=== PATIENT | male | born 1990 | race African-American/Black ===

== ENCOUNTER 2022-08-19 00:53 | Emergency (ER) | payer OTHER, SELFPAY ==
[2022-08-19 01:05] VITALS: BP 135/84; PULSE 73; RESP 18; TEMP 36.8; O2SAT 98; BMI 28.8
[2022-08-19 01:38] VITALS: BP 128/87; PULSE 68; RESP 14; O2SAT 96
--- NOTE | 2022-08-19 01:38 | XRR_ITS ---
PROCEDURE INFORMATION: Exam: XR Chest Exam date and time: 08/19/2022 1:54 AM Age: 31 years old Clinical indication: Other: Sickle cell disease; Additional info: Sickle cell dz TECHNIQUE: Imaging protocol: Radiologic exam of the chest. Views: 1 view. COMPARISON: No relevant prior studies available. FINDINGS: Lungs: Unremarkable. No consolidation. Pleural spaces: Unremarkable. No pleural effusion. No pneumothorax. Heart/Mediastinum: There is mild cardiomegaly. Bones/joints: Unremarkable. XR/XR chest 1V portable [id number] IMPRESSION: Mild cardiomegaly.
[2022-08-19] MEDS: HYDROmorphone 1 mg/mL INJ 1 mL IVP ×2 (01:57→03:23)
[2022-08-19] MEDS: sodium chloride 0.9% 1,000 ML 999 ML IV (01:57)
[2022-08-19] MEDS: ondansetron 2 mg/ML SDV 2 mL 4 MG IVP (01:57)
[2022-08-19] MEDS: diphenhydrAMINE 50 mg/mL SDV 1mL 25 MG IVP (01:58)
[2022-08-19 02:13] LABS: Reticulocyte % 1.7 % (0.5-2.0)
[2022-08-19 02:19] LABS: Basophils # 0.2 10^3/uL (0.0-0.1); Basophils % 1.3 %; Eosinophils # 0.5 10^3/uL (0.0-0.8); Eosinophils % 4.4 %; Hematocrit 36.2 % (42.0-52.0); Hemoglobin 11.4 g/dL (11.7-16.6); Lymphocytes # 3.7 10^3/uL (0.8-4.8); Lymphocytes % 29.9 %; Mean Corpuscular HGB Conc 31.5 g/dL (30.0-36.0); Mean Corpuscular Hemoglobin 18.4 pg (28.0-34.0); Mean Corpuscular Volume 58.4 fl (80-94); Monocytes # 1.2 10^3/uL (0.2-0.9); Monocytes % 9.9 %; Neutrophils # 6.73 10^3/uL (1.8-7.7); Neutrophils % 54.3 %; Nucleated Red Blood Cells # 0.3 /100WBC; Platelet Count 461 10^3/cmm (130-400); Red Cell Distribution Width 23.5 % (12.1-15.1); White Blood Count 12.4 10^3/uL (4.0-10.0)
[2022-08-19 02:29] LABS: Alanine Aminotransferase 16 U/L (0-41); Albumin Level 4.2 g/dL (3.5-5.2); Alkaline Phosphatase 81 U/L (40-130); Anion Gap 15.4 (5-19); Aspartate Amino Transferase 17 U/L (0-40); Blood Urea Nitrogen 8 mg/dL (6-20); C Reactive Protein 3.6 mg/L (0.0-4.9); Calcium 9.3 mg/dL (8.5-10.5); Carbon Dioxide 26 mmol/L (22-29); Chloride 105 mmol/L (98-107); Globulin 3.9 g/dL (1.3-4.6); Glomerular Filtration Rate 106.9 mL/min (90-130); Glucose 108 mg/dL (65-115); Osmolality Calculated 293 mOsm/kg (285-295); Potassium 4.4 mmol/L (3.5-5.1); Sodium 142 mmol/L (136-145); Total Bilirubin 1.2 mg/dL (0.15-1.2); Total Protein 8.1 g/dL (6.6-8.7)
[2022-08-19 02:31] LABS: Erythrocyte Sedimentation Rate 1 mm/hr (0-10)
[2022-08-19 02:45] LABS: Add RBC Morph Yes
[2022-08-19 02:46] LABS: RBC Morph Comp No
[2022-08-19 02:51] LABS: Anisocytosis 3+; Microcytosis 2+; Target Cells 3+
[2022-08-19 03:08] VITALS: BP 130/86; PULSE 63; RESP 15; O2SAT 90
[2022-08-19 03:23] VITALS: RESP 14
[2022-08-19 03:26] VITALS: BP 130/86; PULSE 70; RESP 14; O2SAT 96
--- NOTE | 2022-08-20 11:56 | W.ED.GENADLT ---
HPI - General Adult General: Chief complaint: General Medical Stated complaint: Sicle Cell Anemia Time Seen by Provider: 08/19/22 01:26 Source: patient History of Present Illness: 31 year old male with a history of sickle cell disease. He presents with right arm and right leg pain. He denies any chest symptoms such as chest pain or shortness of breath. There is no fever. He took roxycodone without improvement. Onset (ago): hour(s) Location: upper extremity and lower extremity Radiation: non-radiation Severity: moderate Quality: aching Pain Consistency: constant Relieving factors: none Exacerbating factors: none Associated symptoms: Deny chest pain, cough, diaphoresis, decreased appetite, dyspnea, fevers/chills, headache(s), nausea, rash, short of breath or vomiting Review of Systems Const: Denies: fever(s) or diaphoresis Eyes: Denies: change in vision Card: Denies: chest pain Resp: Denies: dyspnea GI: Denies: abdominal pain, nausea or vomiting : Denies: flank pain Musc: Denies: neck pain or back pain Skin/Breast: Denies: rash Neuro: Denies: headache(s), numbness in extremities or weakness in extremities Physical Exam Const: COMMON NORMALS: no acute distress HENMT: COMMON NORMALS: normocephalic, atraumatic and Normal external nose present HEAD & SCALP: normocephalic and atraumatic FACE & SINUS: normal facial exam NOSE: Normal external nose present and Normal nares present Eye: COMMON NORMALS: Equal, round and reactive pupils present and EOMs intact bilaterally PUPIL: Yes Equal, round and reactive pupils present Chest: COMMONS NORMALS: normal inspection of the chest Resp: COMMON NORMALS: normal respiratory effort, No retractions, No use of accessory muscles and clear to auscultation bilaterally AUSCULTATION: clear to auscultation bilaterally Cardio: COMMON NORMALS: regular rate and regular rhythm RATE: regular rate RHYTHM: regular rhythm GI: COMMON NORMALS: Normal to inspection, nondistended, normoactive bowel sounds present and Soft to palpation PALPATION: Yes Soft to palpation and No Tenderness to palpation present (GI) : COMMON NORMALS: Yes no CVA tenderness BLADDER/KIDNEY EXAM: Yes no CVA tenderness Back/Pelvis: COMMON NORMALS: no CVA tenderness Extremity: COMMON NORMALS: no clubbing, cyanosis or edema Neuro: SOFIYA COMA SCALE: document GCS findings Sofiya coma scale eye opening: Spontaneous Sofiya coma scale verbal response: Orientated [place] coma scale motor response: Obey commands [place] coma scale total score: 15 SPEECH: speech normal Psych: COMMON NORMALS: mental status grossly normal and speech normal SPEECH: Yes normal speech Course Vital Signs: Vital signs: Vital Signs Temperature 98.2 F 08/19/22 01:05 Pulse Rate 70 08/19/22 03:26 Respiratory Rate 14 08/19/22 03:26 Blood Pressure 130/86 08/19/22 03:26 Pulse Oximetry 96 08/19/22 03:26 Oxygen Delivery Me thod 08/19/22 01:38 MDM - General Adult Medical Decision Making This very nice gentleman has a history of sickle cell disease. He conveniently has listed allergies to non narcotic pain medication. He was given hydromorphone with good results. His laboratory including hemoglobin and reticulocyte count are normal which speak against crisis. He has no chest symptoms. He will be allowed home. Lab Data : 08/19/22 01:30 08/19/22 01:30 Radiology Impressions Chest X-Ray 08/19/22 01:38 IMPRESSION: Mild cardiomegaly. Laboratory Results WBC 12.4 10^3/uL (4.0-10.0) H 08/19/22 01:30 RBC 6.20 10^6/uL (4.1-5.3) H 08/19/22 01:30 Hgb 11.4 g/dL (11.7-16.6) L 08/19/22 01:30 Hct 36.2 % (42.0-52.0) L 08/19/22 01:30 MCV 58.4 fl (80-94) L 08/19/22 01:30 MCH 18.4 pg (28.0-34.0) L 08/19/22 01:30 MCHC 31.5 g/dL (30.0-36.0) 08/19/22 01:30 RDW 23.5 % (12.1-15.1) H 08/19/22 01:30 Plt Count 461 10^3/cmm (130-400) H 08/19/22 01:30 MPV Not Reportable 08/19/22 01:30 Neut % (Auto) 54.3 % 08/19/22 01:30 Lymph % (Auto) 29.9 % 08/19/22 01:30 [place] % (Auto) 9.9 % 08/19/22 01:30 Eos % (Auto) 4.4 % 08/19/22 01:30 Baso % (Auto) 1.3 % 08/19/22 01:30 Reticulocyte % (Auto) 1.7 % (0.5-2.0) 08/19/22 01:30 Neut # (Auto) 6.73 10^3/uL (1.8-7.7) 08/19/22 01:30 Lymph # (Auto) 3.7 10^3/uL (0.8-4.8) 08/19/22 01:30 [place] # (Auto) 1.2 10^3/uL (0.2-0.9) H 08/19/22 01:30 Eos # (Auto) 0.5 10^3/uL (0.0-0.8) 08/19/22 01:30 Baso # (Auto) 0.2 10^3/uL (0.0-0.1) H 08/19/22 01:30 Nucleated RBC % (auto) 2.0 % 08/19/22 01:30 Nucleated RBCs # 0.3 /100WBC 08/19/22 01:30 Anisocytosis 3+ H 08/19/22 01:30 Microcytosis 2+ H 08/19/22 01:30 Target Cells 3+ H 08/19/22 01:30 ESR 1 mm/hr (0-10) 08/19/22 01:30 Sodium 142 mmol/L (136-145) 08/19/22 01:30 Potassium 4.4 mmol/L (3.5-5.1) 08/19/22 01:30 Chloride 105 mmol/L (98-107) 08/19/22 01:30 Carbon Dioxide 26 mmol/L (22-29) 08/19/22 01:30 Anion Gap 15.4 (5-19) 08/19/22 01:30 BUN 8 mg/dL (6-20) 08/19/22 01:30 Creatinine 1.0 mg/dL (0.7-1.2) 08/19/22 01:30 GFR Calculation 106.9 mL/min (90-130) 08/19/22 01:30 Glucose 108 mg/dL (65-115) 08/19/22 01:30 Calculated Osmolality 293 mOsm/kg (285-295) 08/19/22 01:30 Calcium 9.3 mg/dL (8.5-10.5) 08/19/22 01:30 Total Bilirubin 1.2 mg/dL (0.15-1.2) 08/19/22 01:30 AST 17 U/L (0-40) 08/19/22 01:30 ALT 16 U/L (0-41) 08/19/22 01:30 Alkaline Phosphatase 81 U/L (40-130) 08/19/22 01:30 C-Reactive Protein 3.6 mg/L (0.0-4.9) 08/19/22 01:30 Total Protein 8.1 g/dL (6.6-8.7) 08/19/22 01:30 Albumin 4.2 g/dL (3.5-5.2) 08/19/22 01:30 Globulin 3.9 g/dL (1.3-4.6) 08/19/22 01:30 Discharge Plan Discharge Patient Disposition: Home Clinical Impression: Sickle cell anemia with pain Condition: Stable Discharge Orders: Discharge ED (Routine); Ordered 08/19/22 Ordered By: James Toussaint Patient Instructions: Sickle Cell Crisis (ED) Activity Restrictions/Additional Instructions: Continue your medications as directed. Return for fever greater than 100, shortness of breath, significant chest discomfort, other concerning symptoms. Call your doctor later today and let them know you were seen here, they may wish you to have more outpatient testing. Coding Level of Care Code ED Grounds/Maintenance Specialist for Emily Kumari
[2022-08-31 18:52] LABS: Phospholipase A2 Elisa IgG <4 RU/mL; Phospholipase A2 IFA AB NEGATIVE (NEGATIVE)
== END 2022-08-19 03:29 | disposition home or self-care (01) ==
PROVIDERS: Emergency Provider Emergency Medicine
DX: D57.09 Hb-SS disease with crisis with other specified complication (principal)
CPT/HCPCS: 71045; 80053; 83520; 85025; 85045; 85651; 86140; 86255; 96361; 96374; 96375; 96376; 99284; J1170; J1200; J2405; J7030